=== PATIENT | female | born 1950 | race African-American/Black ===

== ENCOUNTER 2020-12-19 08:27 | Day surgery (SDC) | payer OTHER, MEDICARE ==
[2020-12-19] VITALS (10 sets, daily range): BP systolic 108–141; BP diastolic 59–78
[~2020-12-19] VITALS: Ht 170.2 cm; Wt 148.3 kg
[~2020-12-19 08:27] MED LIST: Glycopyrrolate 0.2mg/ml 1ml Vial ONE; LR 1000ml ONE; fentaNYL 100 mcg/2 mL IV ONE
--- NOTE | 2020-12-19 09:18 | Anethesia Preoperative Eval ---
Anesthesia Pre-op PMH/ROS General Date of Evaluation: Dec 19, 2020 Time of Evaluation: 09:13 Anesthesiologist: Meir ASA Score: ASA 2 Mallampati Score Class I : Soft palate, uvula, fauces, pillars visible Class II: Soft palate, uvula, fauces visible Class III: Soft palate, base of uvula visible Class IV: Only hard plate visible Mallampati Classification: Class II Surgeon: Citlali Diagnosis: Abdominal pain Surgical Procedure: EGD Colonoscopy Anesthesia History: none Family History: no anesthesia problems Allergies: Coded Allergies: LEW INHIBITORS (Verified Allergy, Severe, angioedema, 12/19/20) PENICILLINS (Verified Allergy, Severe, Rash, 12/19/20) GABAPENTIN (Verified Allergy, Unknown, 12/19/20) Medications: see eMAR Patient NPO?: Yes Past Medical History Cardiovascular: Reports: HTN; Denies: CAD, PA, valve dz, arrhythmia, other Pulmonary: Denies: asthma, COPD, JAYNE, other Gastrointestinal/Genitourinary: Reports: GERD, other - recurrent diarrhea; Denies: CRI, ESRD Neurologic/Psychiatric: Reports: depression/anxiety; Denies: dementia, CVA, TIA, other Endocrine: Reports: hypothyroidism; Denies: DM, steroids, other HEENT: Denies: cataract (L), cataract (R), glaucoma, [place] (L), [place] (R), other Hematology/Immune: Reports: anemia - mild; Denies: DVT, bleeding disorder, other Musculoskeletal/Integumentary: Reports: OA; Denies: RA, DJD, DDD, edema, other PMH Narrative: as above PSxH Narrative: see H&P Anesthesia Pre-op Phys. Exam Physician Exam Last Vital Signs Date Time Temp Pulse Resp B/P (MAP) Pulse Ox O2 Delivery O2 Flow Rate FiO2 12/19/20 09:00 Room Air Constitutional: NAD Neurologic: CN 2-12 intact Cardiovascular: RRR, no M/R/G Respiratory: CTA Gastrointestinal: S/NT/ND Airway Exam Mallampati Score: Class II MO: limited ROM: limited Teeth: missing Dentures: no upper, no lower Anesthesia Pre-op A/P Labs see chart Risk Assessment & Plan Assessment: ASA 3 Plan: MAC Status Change Before Surgery: No Pre-Antibiotics Drug: None Octavio Worley MD Dec 19, 2020 09:18
[2020-12-19] MEDS ORDERED: ATARAX PO (09:33)
[2020-12-19] MEDS ORDERED: HYDROXYZINE HCL25 M1 PO (09:33)
[2020-12-19] MEDS ORDERED: UREX PO (09:33)
[2020-12-19] MEDS ORDERED: SPIRONOLACTONE100 MG ORAL (09:39)
[2020-12-19] MEDS ORDERED: LACTULOSE20 GM/301 ORAL (09:39)
--- NOTE | 2020-12-19 09:45 | Short Stay Surgery H&P ---
History of Present Illness History of Present Illness Chief Complaint diarrhea HPI Christine Larsen is a 70 year old female who was admitted on for Suspect Crohns Disease Patient History Allergies: Coded Allergies: LEW INHIBITORS (Verified Allergy, Severe, angioedema, 12/19/20) AMITRIPTYLINE (Verified Allergy, Severe, 12/19/20) FACE SWELLING GABAPENTIN (Verified Allergy, Severe, 12/19/20) LIPS, TONGUE SWELLING LATEX (Verified Allergy, Severe, 12/19/20) RASH PENICILLINS (Verified Allergy, Severe, Rash, 12/19/20) Medication History Scheduled Hydroxyzine Hcl (Hydroxyzine Hcl), 25 MG PO Q6HR, (Reported) Spironolactone* (Spironolactone*), 25 MG ORAL DAILY, (Reported) [Atarax], 25 MG PO DAILY, (Reported) [Urex], 1 GM PO BID, (Reported) Miscellaneous Medications Lactulose (Lactulose*), 15 ML ORAL, (Reported) Physical Exam Vital Signs Last Vital Signs Date Time Temp Pulse Resp B/P (MAP) Pulse Ox O2 Delivery O2 Flow Rate FiO2 12/19/20 09:20 97.2 65 20 108/59 100 Room Air Plan Attestation Are the patient's medical conditions optimized for surgery? Neva Zarco MD Dec 19, 2020 09:45
--- NOTE | 2020-12-19 09:46 | Pre-Procedure Note/Attestation ---
Pre-Procedure Note/Attestation Complete Prior to Procedure Planned Procedure: not applicable Procedure Narrative: esophagogastroduodenoscopy colon Indications for Procedure Pre-Operative Diagnosis: diarrhea Attestation I attest that I discussed the nature of the procedure; its benefits; risks and complications; and alternatives (and the risks and benefits of such alternatives), prior to the procedure, with the patient (or the patient's legal automobile rental representative). I attest that, if there was a reasonable possibility of needing a blood transfusion, the patient (or the patient's legal automobile rental representative) was given the [facility] standardized written summary, pursuant to the [place] Blood Safety Act ([place] Health and Safety Code # 1645, as amended). I attest that I re-evaluated the patient just prior to the surgery and that there has been no change in the patient's H&P, except as documented below: Neva Zarco MD Dec 19, 2020 09:46
[2020-12-19] MEDS ORDERED: OXYCODONE PO (09:47)
[2020-12-19] MEDS ORDERED: PREVACID30 MG ORAL (09:47)
[2020-12-19] MEDS ORDERED: ELIQUIS2.5 MG ORAL (09:47)
[2020-12-19] MEDS ORDERED: OXYCONTIN20 MG ORAL (09:47)
[2020-12-19] MEDS ORDERED: DOXYCYCLINE MO100 MG ORAL (09:47)
[2020-12-19] MEDS ORDERED: FERROUS SULFAT325 MG ORAL (09:47)
[2020-12-19] MEDS ORDERED: ATENOLOL50 MG ORAL (09:47)
[2020-12-19] MEDS ORDERED: METRONIDAZOLE500 MG ORAL (09:47)
[2020-12-19] MEDS ORDERED: CIPRO500 MG PO (09:47)
[2020-12-19] MEDS ORDERED: ZOFRAN4 M3 ORAL (09:47)
[2020-12-19] MEDS ORDERED: AYGESTIN5 MG PO (09:47)
[2020-12-19] MEDS ORDERED: PREDNISONE20 MG ORAL (09:47)
[2020-12-19] MEDS ORDERED: VESICARE10 MG ORAL (09:47)
[2020-12-19] MEDS ORDERED: URSODIOL300 MG ORAL (09:47)
[2020-12-19] MEDS ORDERED: fentaNYL 100 mcg/2 mL IV PRN (11:15)
[2020-12-19] MEDS ORDERED: LR 1000ml 1,000 ML IVLG SCH (11:15)
[2020-12-19] MEDS ORDERED: Midazolam 2mg/2ml Inj IVP PRN (11:15)
[2020-12-19] MEDS ORDERED: DiphenhydrAMINE 50mg/ml Inj IVP PRN (11:15)
--- NOTE | 2020-12-19 11:24 | Immediate Post-Op Evaluation ---
Immediate Post-Op Evalulation Immediate Post-Op Evalulation Procedure: EGD COlonoscopy Date of Evaluation: Dec 19, 2020 Time of Evaluation: 11:06 IV Fluids: 700 Blood Products: none Estimated Blood Loss: min Urinary Output: none Blood Pressure Systolic: 126 Blood Pressure Diastolic: 72 Pulse Rate: 78 Respiratory Rate: 20 O2 Sat by Pulse Oximetry: 98 Temperature (Fahrenheit): 97.6 Pain Score (1-10): 2 Nausea: No Vomiting: No Complications none Patient Status: awake, patent, none Hydration Status: adequate Octavio Worlye MD Dec 19, 2020 11:24
--- NOTE | 2020-12-19 11:26 | 48 Hour Post Anesthesia Eval ---
Post Anesthesia Evaluation Procedure: EGD COlonoscopy Date of Evaluation: Dec 19, 2020 Time of Evaluation: 11:24 Blood Pressure Systolic: 131 0: 76 Pulse Rate: 86 Respiratory Rate: 20 Temperature (Fahrenheit): 97.8 O2 Sat by Pulse Oximetry: 98 Airway: patent Nausea: No Vomiting: No Pain Intensity: 1 Hydration Status: adequate Cardiopulmonary Status: stable Mental Status/LOC: patient returned to baseline Follow-up Care/Observations: n/a Post-Anesthesia Complications: none Follow-up care needed: ready to discharge Octavio Worley MD Dec 19, 2020 11:26
--- NOTE | 2020-12-19 14:44 | Operative Note - Dictated ---
DATE OF OPERATION: 12/19/2020 GASTROENTEROLOGY PROCEDURE PROCEDURE: Upper gastrointestinal endoscopy with biopsy as well as colonoscopy with biopsy. SURGEON: Neva Zarco MD. ANESTHESIA: Please see the separate anesthesiologist notes by Dr. Worley. PRE-ENDOSCOPIC DIAGNOSES: 1. Nausea, vomiting. 2. Intractable diarrhea with negative outpatient workup. POST-ENDOSCOPIC DIAGNOSES: 1. Normal upper endoscopy, status post random biopsies of the duodenum, antrum and lower esophagus. 2. U-shaped stomach noted incidentally. 3. Diminutive transverse colon polyp, status post biopsy removal. 4. Scattered right and left-sided diverticulosis. 5. Status post random biopsies of the terminal ileum, ascending colon, transverse colon, descending colon, and rectosigmoid colon. DESCRIPTION OF PROCEDURE: The procedure, its risks, indications, alternatives, and possible complications were explained to the patient and informed consent was obtained. The patient was then sedated in the left lateral decubitus position and a diagnostic upper endoscope was introduced through oropharynx and advanced to the duodenum without difficulty. The endoscope was then gradually withdrawn. The mucosa examined carefully. Examination of the upper gastrointestinal mucosa revealed U-shaped stomach, which resulted in coiling of the endoscope. The biopsies of the duodenum, antrum and lower esophagus were sent to pathology for review. There were no ulcerations or other abnormalities identified. The endoscope was removed. The patient was turned around and a rectal exam was done. The colonoscope was then introduced into the rectum and advanced to 10 cm into the terminal ileum. The colonoscope was then gradually withdrawn and mucosa examined carefully. There was some looping and likely adhesions in the sigmoid colon making passage of that area a bit more difficult. There was a diminutive transverse colon polyp was seen measuring about 3 mm, which was removed with biopsy forceps. The scattered right-sided and left-sided diverticulosis were also seen. Random biopsies of the terminal ileum, ascending colon, transverse colon, descending colon, and rectosigmoid colon were sent to pathology for review. Retroflexed view of the rectum was unremarkable. The colonoscope was removed and the patient was sent to recovery in good condition. COMPLICATIONS: None. RECOMMENDATIONS: 1. Followup biopsy results. 2. Resume anticoagulation tonight. 3. Followup next week for results. Neva Zarco M.D. DR: JOSH JOB#: [id number] CC: Neva Zarco M.D.; Fax#: [phone]
--- NOTE | 2020-12-20 20:08 | Endoscopy Procedure Note ---
Endoscopy Procedure Note General Indication for Procedure: N/V, Diarrhea Procedures Performed: EGD, colonoscopy Operative Findings/Diagnosis: u shape stomach, colon polyp Specimen: yes Pt Tolerated Procedure Well: Yes Estimated Blood Loss: none Anesthesia Anesthesiologist: see report Anesthesia: MAC, moderate sedation Medications Medication Given: see anesthesia record Inserted Devices Implant(s) used?: No GI Core Measures 50 yrs or older w/o bx or poly: Not Applicable 10yrs. F/U recommended: Not Applicable If not recommended, why?: Neva Zarco MD Dec 20, 2020 20:08
--- NOTE | 2020-12-20 20:09 | Brief Operative Note ---
Immediate Post Operative Note Operative Note Chief Complaint: N/V, diarrhea Pre-op Diagnosis: diarrhea Procedure: EGD, Colon Bx BX Post-op Diagnosis: 1. Normal upper endoscopy, status post random biopsies of the duodenum, antrum and lower esophagus. 2. U-shaped stomach noted incidentally. 3. Diminutive transverse colon polyp, status post biopsy removal. 4. Scattered right and left-sided diverticulosis. 5. Status post random biopsies of the terminal ileum, ascending colon, transverse colon, descending colon, and rectosigmoid colon. Surgeon: domingo Anesthesiologist: see report Specimen: yes Complications: none Condition: stable Fluids: per anesthesia Estimated Blood Loss: none Drains: none Implant(s) used?: No Neva Zarco MD Dec 20, 2020 20:09
== END 2020-12-19 13:15 | disposition home or self-care (01) ==
LOC: GAS 08:27
DX: R11.2 Nausea with vomiting, unspecified (principal); R19.7 Diarrhea, unspecified; K63.5 Polyp of colon; K57.90 Diverticulosis of intestine, part unspecified, without perforation or abscess without bleeding; Z88.0 Allergy status to penicillin; Z88.8 Allergy status to other drugs, medicaments and biological substances; Z91.040 Latex allergy status; Z79.899 Other long term (current) drug therapy; I10 Essential (primary) hypertension; M19.90 Unspecified osteoarthritis, unspecified site; D64.9 Anemia, unspecified; E03.9 Hypothyroidism, unspecified; F32.9 Major depressive disorder, single episode, unspecified; F41.9 Anxiety disorder, unspecified
CPT/HCPCS: 43239; 45380; 94003; J1200; J2704; J3010; J7120; 94150